=== PATIENT | female | born 1950 | race Caucasian/White ===

== ENCOUNTER 2019-08-28 12:53 | Day surgery (SDC) | payer MEDICARE ==
[2019-08-28] MEDS ORDERED: Depo-Medrol 40 MG/ML IM ONE (12:54)
[2019-08-28] MEDS ORDERED: Marcaine 0.5% SDV 10 ML IM ONE (12:54)
[2019-08-28] MEDS ORDERED: Xylocaine 1% Vial 30 ML PF IJ ONE (12:54)
--- NOTE | 2019-08-28 15:11 | XRAY ---
9 seconds fluoroscopy time in surgery for right shoulder intra-articular injection.
--- NOTE | 2019-08-28 15:21 | XRAY ---
Indication: Right shoulder injection. Intraoperative fluoroscopy was provided for 9 seconds. Single digital spot image submitted for interpretation demonstrates needle tip projecting over the right glenohumeral joint superiorly. Small amount of contrast injected for needle tip placement. Correlate with intraoperative findings/report.
== END 2019-08-28 14:32 | disposition home or self-care (01) ==
LOC: SDC-PAIN 12:53
PROVIDERS: ATTEND Psychiatry & Neurology Pain Medicine
DX: M19.011 Primary osteoarthritis, right shoulder (principal); F41.8 Other specified anxiety disorders; Z79.899 Other long term (current) drug therapy
CPT/HCPCS: 20610; 73030; 77002; J1030; J2001; Q9966

== ENCOUNTER 2019-12-25 14:36 | Day surgery (SDC) | payer MEDICARE ==
[2019-12-25] MEDS ORDERED: Marcaine 0.5% SDV 10 ML IJ ONE (14:37)
[2019-12-25] MEDS ORDERED: Depo-Medrol 40 MG/ML IM ONE (14:37)
[2019-12-25] MEDS ORDERED: Xylocaine 1% Vial 30 ML PF IJ ONE (14:37)
--- NOTE | 2019-12-25 16:15 | XRAY ---
29 seconds fluoroscopy time in surgery for right intra-articular ad subacromial injections.
--- NOTE | 2019-12-25 16:25 | XRAY ---
Indication: Right shoulder intra-articular injection. Intraoperative fluoroscopy was provided for 29 seconds. 2 digital spot images submitted for interpretation demonstrates needle tip projecting over the right glenohumeral joint superiorly. Small amount of contrast injected for needle tip placement. Correlate with intraoperative findings/report.
== END 2019-12-25 15:53 | disposition home or self-care (01) ==
LOC: SDC-PAIN 14:36
PROVIDERS: ATTEND Psychiatry & Neurology Pain Medicine
DX: M19.011 Primary osteoarthritis, right shoulder (principal); M75.52 Bursitis of left shoulder; M75.51 Bursitis of right shoulder; F41.8 Other specified anxiety disorders; Z79.899 Other long term (current) drug therapy
CPT/HCPCS: 20610; 73030; 77002; J1030; J2001; Q9966

== ENCOUNTER 2020-12-23 14:40 | Day surgery (SDC) | payer MEDICARE ==
[2020-12-23] MEDS ORDERED: Depo-Medrol 40 MG/ML IM ONE (14:41)
[2020-12-23] MEDS ORDERED: Sodium Chloride 0.9(Preservative Free) 10 ML IJ ONE (14:41)
[2020-12-23] MEDS ORDERED: DIPRIVAN 200 MG/20 ML IV ONE (16:56)
[2020-12-23] MEDS ORDERED: Lactated Ringers 1,000 ML IV ONE (17:34)
--- NOTE | 2020-12-24 08:02 | XRAY ---
21 seconds fluoroscopy time in surgery for transforaminal DEEP.
== END 2020-12-23 17:21 | disposition home or self-care (01) ==
LOC: SDC-PAIN 14:40
PROVIDERS: ATTEND Psychiatry & Neurology Pain Medicine
DX: M54.16 Radiculopathy, lumbar region (principal); Z79.899 Other long term (current) drug therapy
CPT/HCPCS: 64483; 64484; 72020; 77003; J1030; J2704; Q9966

== ENCOUNTER 2021-05-26 12:12 | Day surgery (SDC) | payer MEDICARE ==
[2021-05-26] MEDS ORDERED: Sodium Chloride 0.9% 10 ML FLUSH Syringe IJ ONE (12:13)
[2021-05-26] MEDS ORDERED: Depo-Medrol 40 MG/ML IM ONE (12:13)
[2021-05-26] MEDS ORDERED: Lactated Ringers 1,000 ML IV ONE (13:46)
[2021-05-26] MEDS ORDERED: DIPRIVAN 200 MG/20 ML IV ONE (14:30)
--- NOTE | 2021-05-26 16:40 | XRAY ---
Indication: Left L3-L5 transforaminal DEEP. Intraoperative fluoroscopy provided for 27 seconds. 5 digital spot image submitted for interpretation demonstrates posterior needle tips projecting over the expected left L3 and L4 nerve roots. Small amount of contrast injected for needle tip placement. Correlate with intraoperative findings/report.
== END 2021-05-26 14:56 | disposition home or self-care (01) ==
LOC: SDC-PAIN 12:12
PROVIDERS: ATTEND Psychiatry & Neurology Pain Medicine
DX: M54.16 Radiculopathy, lumbar region (principal); Z79.899 Other long term (current) drug therapy
CPT/HCPCS: 64483; 64484; 72100; 77003; J1030; J2704; Q9966

== ENCOUNTER 2023-01-18 12:17 | Day surgery (SDC) | payer MEDICARE ==
[2023-01-18] MEDS ORDERED: Depo-Medrol 40 MG/ML IM ONE (12:18)
[2023-01-18] MEDS ORDERED: Sodium Chloride 0.9(Preservative Free) 10 ML IJ ONE (12:18)
[2023-01-18] MEDS ORDERED: DIPRIVAN 200 MG/20 ML IV ONE (14:29)
[2023-01-18] MEDS ORDERED: Lactated Ringers 1,000 ML IV ONE (16:00)
--- NOTE | 2023-01-18 16:33 | XRAY ---
18 seconds of fluoroscopy was used in surgery for a left L3-L5 transforaminal DEEP.
--- NOTE | 2023-01-18 16:37 | XRAY ---
Indication: Left L3-L5 transforaminal DEEP. Intraoperative fluoroscopy provided for 18 seconds. 4 digital spot image submitted for interpretation demonstrates posterior needle tips projecting over the expected left L3 and L4 nerve roots. Small amount of contrast injected for needle tip placement. Correlate with intraoperative findings/report.
== END 2023-01-18 15:00 | disposition home or self-care (01) ==
LOC: SDC-PAIN 12:17
PROVIDERS: ATTEND Psychiatry & Neurology Pain Medicine
DX: M54.16 Radiculopathy, lumbar region (principal); Z79.899 Other long term (current) drug therapy
CPT/HCPCS: 64483; 64484; 72100; 77003; J1030; J2704; Q9966

== ENCOUNTER 2023-02-18 12:30 | Emergency (ER) | payer MEDICARE ==
[2023-02-18 12:51] VITALS: TEMP 98; O2SAT 96
[2023-02-18] MEDS ORDERED: Rocephin 1000 MG INJ IM ONE (12:58)
--- NOTE | 2023-02-18 12:58 | ERPHSYRPT ---
- History of Present Illness Time Seen by Provider: 02/18/23 12:53 Source: patient Patient Subjective Stated Complaint: C/O RLE pain. States it has been hurting for a few days but is worse today. Triage Nursing Assessment: Patient ambulated back to ER with a steady gait. She is alert and oriented. No SOB. RLE ([place] area) is red and warm to touch. Two small open areas/abrasions noted in area of redness. Patient indicates she has been working out in her yard and is unsure how the openings in her skin occurred or when they happened. Edema noted to both feet/ankles; right worse than left. Weak but equal pedal pulses present. Physician History: c/o Two small open areas/abrasions noted in area of redness. Patient indicates she has been working out in her yard and is unsure how the openings in her skin occurred or when they happened. Method of Injury: unknown Occurred: days ago Severity of Pain-Max: mild Severity of Pain-Current: mild Lower Extremities Pain: leg: right Modifying Factors: Improves With: nothing Associated Symptoms: none Allergies/Adverse Reactions: No Known Allergies Allergy (Verified 02/18/23 12:40) Home Medications: ALPRAZolam [Xanax 0.5 mg] 0.5 mg PO Q8HPRN PRN 02/06/16 [History] Bumetanide 1 mg [Bumex 1 mg] 1 mg PO DAILY 02/06/16 [History] Cholecalciferol (Vitamin D3) [Vitamin D3] 50,000 unit PO WEEKLY 02/06/16 [History] Diclofenac Sodium [Voltaren] 1 applic TP QID 02/06/16 [History] Fluticasone/Vilanterol [Breo Ellipta 100-25 Mcg INH] 1 each IH DAILY 02/06/16 [History] Gabapentin [Neurontin] 300 mg PO DAILY 02/06/16 [History] Hydrocodone/Acetaminophen [Keo 5-325 Tablet] 1 each PO DAILY 02/06/16 [History] Losartan Potassium 50 mg [Cozaar 50 MG] 50 mg PO DAILY 02/06/16 [History] Meloxicam 15 mg [Meloxicam 15 MG] 15 mg PO DAILY 02/06/16 [History] Oxymorphone HCl [Oxymorphone HCl ER] 10 mg PO BID 02/06/16 [History] Potassium Chloride 10 meq PO DAILY 02/06/16 [History] Ropinirole HCl [Requip] 2 mg PO HS 02/06/16 [History] Venlafaxine HCl [Effexor] 75 mg PO TID 02/06/16 [History] lisinopriL [Zestril] 2.5 mg PO DAILY 02/06/16 [History] Hx Tetanus, Diphtheria Vaccination/Date Given: Yes Hx Influenza Vaccination/Date Given: Yes Hx Pneumococcal Vaccination/Date Given: Yes Immunizations Up to Date: Yes Travel Risk - International Travel Have you traveled outside of the country in past 3 weeks: No - Coronavirus Screening Are you exhibiting any of the following symptoms?: No Close contact with a COVID-19 positive Pt in past 14-21 Days: No - Vaccine Status Have you recieved a Covid-19 vaccination: Yes Still Runner: Unknown - Vaccination Dates Dates if Unknown: ? - Review of Systems Constitutional: No Fever, No Chills Eyes: No Symptoms Ears, Nose, & Throat: No Symptoms Respiratory: No Cough, No Dyspnea Cardiac: No Chest Pain, No Edema, No Syncope Abdominal/Gastrointestinal: No Abdominal Pain, No Nausea, No Vomiting, No Diarrhea Genitourinary Symptoms: No Dysuria Musculoskeletal: No Back Pain, No Neck Pain Skin: No Rash Neurological: No Dizziness, No Focal Weakness, No Sensory Changes Psychological: No Symptoms Endocrine: No Symptoms All Other Systems: Reviewed and Negative - Past Medical History Pertinent Past Medical History: Yes Neurological History: Other ENT History: No Pertinent History Cardiac History: Hypertension Respiratory History: CHF, COPD, Sleep Apnea Endocrine Medical History: No Pertinent History Musculoskeletal History: Arthritis GI Medical History: No Pertinent History History: No Pertinent History Psycho-Social History: Anxiety Female Reproductive Disorders: No Pertinent History Other Medical History: Restless leg syndrome, carpal tunnel - Past Surgical History Past Surgical History: Yes Neuro Surgical History: No Pertinent History Cardiac: No Pertinent History Gastrointestinal: Cholecystectomy Genitourinary: No Pertinent History Musculoskeletal: Orthopedic Surgery Female Surgical History: Section, Hysterectomy Other Surgical History: lt knee replacement, carpal tunnel surgery, sinus surgery, three ear surgeries, Medical hx taken from transfer medical record - Social History Smoking Status: Never smoker Exposure to second hand smoke: No Drug Use: none - Nursing Vital Signs Nursing Vital Signs: Initial Vital Signs Temperature 98 F 02/18/23 12:31 Pulse Rate 72 02/18/23 12:31 Respiratory Rate 19 02/18/23 12:31 Blood Pressure 122/74 02/18/23 12:31 O2 Sat by Pulse Oximetry 96 02/18/23 12:31 Pain Scale Pain Intensity [RLE] 7 Pain Intensity 7 - Physical Exam General Appearance: alert Eyes, Ears, Nose, Throat Exam: moist mucous membranes Neck Exam: non-tender, supple Cardiovascular/Respiratory Exam: chest non-tender, normal breath sounds, regular rate/rhythm, no respiratory distress Gastrointestinal/Abdominal Exam: non-tender, guarding Back Exam: normal inspection, No vertebral tenderness Hips Exam: bilateral: non-tender Legs Exam: right leg: soft tissue tenderness, swelling Knees Exam: bilateral knee: non-tender Ankle Exam: bilateral ankle: non-tender Foot Exam: bilateral foot: non-tender Neuro/Tendon Exam: normal sensation, normal motor functions Mental Status Exam: alert, oriented x 3, cooperative Skin Exam: normal color, warm, dry SpO2 Interpretation: normal SpO2: 96 O2 Delivery: Room Air - Course Nursing assessment & vital signs reviewed: Yes - Progress Progress: unchanged, pain not gone completely Counseled pt/family regarding: diagnosis, need for follow-up Medical Desision Making - Diagnostic Testing Diagnostic test were ordered, analyzed, and reviewed by me: No - Risk of complications Minimal Risk: Minimal risk of morbidity - Departure Departure Disposition: Home Clinical Impression: Cellulitis of right leg without foot Condition: Stable Critical Care Time: No Referrals: MAGDIEL TOVAR MD [Primary Care Provider] - Follow Up with PCP/3 days Instructions: Cellulitis (Skin Infection), Adult (DC) Additional Instructions: Discharge/Care Plan PAOLA LIGHT was seen on 02/18/23 in the Emergency Room. The patient was counseled regarding Diagnosis,Lab results, Imaging studies, need for follow up and when to return to the Emergency Room. Prescriptions given: Discharge Note I have spoken with the patient and/or caregivers. I have explained the patient's condition, diagnosis and treatment plan based on the information available to me at this time. I have answered the patient's and/or caregiver's questions and ad dressed any concerns. The patient and/or caregivers have as good understanding of the patient's diagnosis, condition and treatment plan as can be expected at this point. The vital signs have been stable. The patient's condition is stable and appropriate for discharge from the emergency department. The patient will pursue further outpatient evaluation with the primary care physician or other designated or consulting physician as outlined in the discharge instructions. The patient and/or caregivers are agreeable to this plan of care and follow-up instructions have been explained in detail. The patient and/or caregivers have received these instruction. The patient/and or caregivers are aware that any significant change in condition or worsening of symptoms should prompt an immediate return to this or the closest emergency department or call 911. PAOLA LIGHT was seen on 02/18/23 n the Emergency Room. At that time you were treated for an emergent condition, during your visit Laboratory, Radiology and/or other procedures may have been ordered. It is very important that you follow-up with your Primary Care Physician MAGDIEL TOVAR within the next 24-48 hours to review your Emergency Room visit and the final results of testing that was ordered. Some test results such as Urine Cultures, Blood Cultures, and other cultures if ordered will not be finalized for 24-48 hours. If you do not have a Primary Care Provider please call the medical records department at [phone] ext [phone] to obtain a copy of your results or you may sign into our patient portal to obtain these results by visiting us @ [email or web address] and completing the following steps: 1. Click on the Patient Portal link 2. Click the Patient Self Enrollment Link to complete the enrollment form and entering your 3. Once the enrollment form is completed you will receive an email with a tempo rary ID and password at the email address you provided. 4. Next choose a user name and password. Your user name must be at least 4 characters long and your password must be at least 4 characters long. 5. Choose a security question from the list and provide your answer to the question. If you already have signed into the Health Portal you may access your Health Care Information 02/01 by the following steps: 1. Login to our website @ [email or web address] 2. Enter your original user name and password. FAQS The [facility] Health Portal is an online tool that contains your Lab Results, Radiology Reports, Visit History, Discharge Instructions and Health Summary Lab and Radiology Results will not be available for 72 hours on the portal. The Portal is a secure site, passwords are encryted and URLs are re-written so they cannot be copied and pasted. You and authorized family members are the only ones who can access your Portal. Also there is a timeout feature that protects your information if you leave the Portal page open. If you have technical difficulty please use the Contact Us link on the page this will allow you to submit any questions you have regarding the Portal or you may contact the Medical Record Department at [phone] ext [phone]. Prescriptions: Cephalexin Mh 500 mg [Keflex 500 mg] 500 mg PO Q6H #40 cap
[2023-02-18] MEDS ORDERED: Rocephin 1000 MG INJ ONE (13:06)
[2023-02-18 13:16] VITALS: BP 109/85; PULSE 76; RESP 18
== END 2023-02-18 13:23 | disposition home or self-care (01) ==
LOC: ED 12:30
DX: L03.115 Cellulitis of right lower limb (principal); I11.0 Hypertensive heart disease with heart failure; I50.9 Heart failure, unspecified; Z79.899 Other long term (current) drug therapy
CPT/HCPCS: 96372; 99282; J0696

== ENCOUNTER 2023-05-25 12:05 | Day surgery (SDC) | payer MEDICARE ==
[2023-05-25] MEDS ORDERED: XYLOCAINE-MPF 1% 5ML SDV IJ ONE (12:06)
[2023-05-25] MEDS ORDERED: Decadron 4 MG INJ IV ONE (12:06)
[2023-05-25] MEDS ORDERED: DIPRIVAN 200 MG/20 ML IV ONE (13:51)
--- NOTE | 2023-05-25 15:04 | XRAY ---
Indication: Left piriformis injection. Intraoperative fluoroscopy provided for 15 seconds. 3 digital spot image submitted for interpretation demonstrates posterior needle tip projecting over the left piriformis. Small amount of contrast injected for needle tip placement. Correlate with intraoperative findings/report.
--- NOTE | 2023-05-25 15:16 | XRAY ---
15 seconds of fluoroscopy was used in surgery for a left piriformis injection.
[2023-05-25] MEDS ORDERED: Lactated Ringers 1,000 ML IV ONE (16:28)
== END 2023-05-25 14:20 | disposition home or self-care (01) ==
LOC: SDC-PAIN 12:05
PROVIDERS: ATTEND Psychiatry & Neurology Pain Medicine
DX: M79.18 Myalgia, other site (principal)
CPT/HCPCS: 20552; 72170; 77002; J1100; J2704; Q9966

== ENCOUNTER 2023-07-20 12:58 | Day surgery (SDC) | payer MEDICARE ==
[2023-07-20] MEDS ORDERED: Depo-Medrol 40 MG/ML IM ONE (12:59)
[2023-07-20] MEDS ORDERED: BUPIVACAINE 0.5% VIAL IJ ONE (12:59)
[2023-07-20] MEDS ORDERED: DIPRIVAN 200 MG/20 ML IV ONE (13:56)
[2023-07-20] MEDS ORDERED: Lactated Ringers 1,000 ML IV ONE (14:36)
--- NOTE | 2023-07-20 14:52 | XRAY ---
Indication: Bilateral SI joint injection. Intraoperative fluoroscopy provided for 13 seconds. 4 digital spot image submitted for interpretation demonstrates posterior needle tip projecting over the left and right SI joint. Correlate with intraoperative findings/report.
--- NOTE | 2023-07-20 15:10 | XRAY ---
13 seconds of fluoroscopy was used in surgery for a bilateral sacroiliac joint injection.
== END 2023-07-20 14:28 | disposition home or self-care (01) ==
LOC: SDC-PAIN 12:58
PROVIDERS: ATTEND Psychiatry & Neurology Pain Medicine
DX: M46.1 Sacroiliitis, not elsewhere classified (principal)
CPT/HCPCS: 01992; 27096; 72202; 77002; G0260; J1030; J2704

== ENCOUNTER 2023-09-06 13:51 | Day surgery (SDC) | payer MEDICARE ==
[2023-09-06] MEDS ORDERED: LIDOCAINE HCL 2% 100 MG/5 ML IJ ONE (13:52)
[2023-09-06] MEDS ORDERED: DIPRIVAN 200 MG/20 ML IV ONE (15:10)
[2023-09-06] MEDS ORDERED: Lactated Ringers 1,000 ML IV ONE (15:53)
--- NOTE | 2023-09-06 16:50 | XRAY ---
Indication: Bilateral L3-L5 MBB. Intraoperative fluoroscopy provided for 15 seconds. Single digital spot image submitted for interpretation demonstrates posterior needle tips projecting over the expected left and right L3-L5 nerve roots. Correlate with intraoperative findings/report.
--- NOTE | 2023-09-06 18:26 | XRAY ---
15 seconds of fluoroscopy was used in surgery for a bilateral L3-L5 MBB.
== END 2023-09-06 15:35 | disposition home or self-care (01) ==
LOC: SDC-PAIN 13:51
PROVIDERS: ATTEND Psychiatry & Neurology Pain Medicine
DX: M47.816 Spondylosis without myelopathy or radiculopathy, lumbar region (principal)
CPT/HCPCS: 64493; 64494; 72020; 77002; J2704

== ENCOUNTER 2023-09-27 12:07 | Day surgery (SDC) | payer MEDICARE ==
[2023-09-27] MEDS ORDERED: BUPIVACAINE 0.5% VIAL IJ ONE (12:08)
[2023-09-27] MEDS ORDERED: DIPRIVAN 200 MG/20 ML IV ONE (13:46)
[2023-09-27] MEDS ORDERED: Lactated Ringers 1,000 ML IV ONE (14:05)
--- NOTE | 2023-09-27 15:11 | XRAY ---
Indication: Bilateral L3-L5 MBB. Intraoperative fluoroscopy provided for 10 seconds. Single digital spot image submitted for interpretation demonstrates posterior needle tips projecting over the expected left and right L3-L5 nerve roots. Correlate with intraoperative findings/report.
--- NOTE | 2023-09-27 15:16 | XRAY ---
10 seconds of fluoroscopy was used in surgery for a bilateral L3-L5 MBB.
== END 2023-09-27 14:16 | disposition home or self-care (01) ==
LOC: SDC-PAIN 12:07
PROVIDERS: ATTEND Psychiatry & Neurology Pain Medicine
DX: M47.816 Spondylosis without myelopathy or radiculopathy, lumbar region (principal)
CPT/HCPCS: 64493; 64494; 72020; 77002; J2704

== ENCOUNTER 2024-01-17 12:00 | Day surgery (SDC) | payer MEDICARE ==
[2024-01-17] MEDS ORDERED: BUPIVACAINE 0.5% VIAL IJ ONE (12:01)
[2024-01-17] MEDS ORDERED: Depo-Medrol 40 MG/ML IM ONE (12:01)
[2024-01-17] MEDS ORDERED: LIDOCAINE HCL 1% 50 MG/5 ML VL PF IJ ONE (12:01)
[2024-01-17] MEDS ORDERED: DIPRIVAN 200 MG/20 ML IV ONE (13:53)
[2024-01-17] MEDS ORDERED: Lactated Ringers 1,000 ML IV ONE (14:34)
--- NOTE | 2024-01-17 15:07 | XRAY ---
Indication: Right L3-L5 RFA. Intraoperative fluoroscopy provided for 24 seconds. 4 digital spot image submitted for interpretation demonstrates posterior needle tips projecting over the expected right L3-L5 nerve roots. Correlate with intraoperative findings/report.
--- NOTE | 2024-01-17 15:09 | XRAY ---
24 seconds of fluoroscopy was used in surgery for a right L3-L5 RFA.
== END 2024-01-17 14:21 ==
LOC: SDC-PAIN 12:00
PROVIDERS: ATTEND Psychiatry & Neurology Pain Medicine
DX: M47.816 Spondylosis without myelopathy or radiculopathy, lumbar region (principal)
CPT/HCPCS: 64635; 64636; 72100; 77002; 99100; J2001; J2704

== ENCOUNTER 2024-01-18 12:04 | Day surgery (SDC) | payer MEDICARE ==
[2024-01-18] MEDS ORDERED: BUPIVACAINE 0.5% VIAL IJ ONE (12:05)
[2024-01-18] MEDS ORDERED: LIDOCAINE HCL 1% 50 MG/5 ML VL PF IJ ONE (12:05)
[2024-01-18] MEDS ORDERED: Depo-Medrol 40 MG/ML IM ONE (12:05)
[2024-01-18] MEDS ORDERED: Lactated Ringers 1,000 ML IV ONE (13:25)
[2024-01-18] MEDS ORDERED: DIPRIVAN 200 MG/20 ML IV ONE (13:32)
--- NOTE | 2024-01-18 15:04 | XRAY ---
Indication: Left L3-L5 RFA. Intraoperative fluoroscopy provided for 21 seconds. 4 digital spot image submitted for interpretation demonstrates posterior needle tips projecting over the expected left L3-L5 nerve roots. Correlate with intraoperative findings/report.
--- NOTE | 2024-01-18 15:34 | XRAY ---
21 seconds of fluoroscopy was used in surgery for a left L3-L5 RFA.
== END 2024-01-18 14:04 | disposition home or self-care (01) ==
LOC: SDC-PAIN 12:04
PROVIDERS: ATTEND Psychiatry & Neurology Pain Medicine
DX: M47.816 Spondylosis without myelopathy or radiculopathy, lumbar region (principal)
CPT/HCPCS: 64635; 64636; 72100; 77002; 99100; J2001; J2704

== ENCOUNTER 2024-07-04 08:48 | Day surgery (SDC) | payer MEDICARE ==
[~2024-07-04 08:48] MED LIST: DIPRIVAN 200 MG/20 ML IV ONE
[2024-07-04] MEDS ORDERED: Depo-Medrol 40 MG/ML IM ONE (08:49)
[2024-07-04] MEDS ORDERED: BUPIVACAINE 0.5% VIAL IJ ONE (08:49)
[2024-07-04] MEDS ORDERED: propofoL IV ONE (10:21)
--- NOTE | 2024-07-04 12:11 | XRAY ---
Indication: Left greater trochanter bursa injection. Intraoperative fluoroscopy provided for 6 seconds. Single digital spot image submitted for interpretation demonstrates needle tip lateral to left greater trochanter. Small amount of contrast injected for needle tip placement. Correlate with intraoperative findings/report.
--- NOTE | 2024-07-04 12:17 | XRAY ---
6 seconds of fluoroscopy was used in surgery for a left greater trochanteric bursa injection.
== END 2024-07-04 10:42 | disposition home or self-care (01) ==
LOC: SDC-PAIN 08:48
PROVIDERS: ATTEND Psychiatry & Neurology Pain Medicine
DX: M16.12 Unilateral primary osteoarthritis, left hip (principal); M70.62 Trochanteric bursitis, left hip
CPT/HCPCS: 20610; 73501; 77002; J2704; Q9966

== ENCOUNTER 2025-03-10 06:00 | Day surgery (SDC) | payer MEDICARE ==
[2025-03-10] MEDS ORDERED: TRANEXAMIC 1,000 MG/100ML-NACL 1,000 MG/100 ML PIGGYBACK IV ONE ×2 (06:03→09:35)
[2025-03-10] MEDS ORDERED: CEFAZOLIN SODIUM ONE (06:04)
[2025-03-10] MEDS: celeBREX 100 MG PO ONE (06:30)
[2025-03-10] MEDS: TYLENOL EXTRA STRENGTH 500 MG PO ONE (06:30)
[2025-03-10] MEDS: Decadron 4 MG PO ONE (06:30)
[2025-03-10] MEDS: Lactated Ringers 1,000 ML IV SCH (06:31)
[2025-03-10] MEDS: TRANEXAMIC 1,000 MG/100ML-NACL 1,000 MG/100 ML PIGGYBACK IV ONE (06:31)
[2025-03-10] MEDS: NEURONTIN PO ONE (06:31)
[2025-03-10] MEDS ORDERED: Zofran 4 MG/2 ML VIAL ONE (07:45)
[2025-03-10] MEDS ORDERED: SUBLIMAZE 100 MCG/2 ML ONE (07:45)
[2025-03-10] MEDS ORDERED: Xylocaine-Mpf 2% 5 Ml Vial ONE (07:45)
[2025-03-10] MEDS ORDERED: Versed 2 MG/2 ML Injection ONE (07:45)
[2025-03-10] MEDS ORDERED: propofoL IV ONE (07:45)
[2025-03-10] MEDS ORDERED: Astramorph-Pf 5 MG/10 ML ONE (07:54)
[2025-03-10] MEDS ORDERED: Ephedrine Sulfate 50 MG/ML ONE (08:18)
--- NOTE | 2025-03-10 10:50 | XRAY ---
Indication: Postop exam. Comparison: March 02, 2022 Portable AP/cross-table lateral left knee demonstrates new total knee arthroplasty with postoperative soft tissue swelling, emphysema, effusion, and anterior cutaneous asael. Again incidental tiny fabella. No other abnormalities.
[2025-03-10] MEDS ORDERED: Docusate Sodium 100 MG PO PRN (11:23)
[2025-03-10] MEDS ORDERED: Miralax Powder 17GM PACKET PO PRN (11:24)
[2025-03-10] MEDS ORDERED: Zofran 4 MG/2 ML VIAL IV PRN (11:24)
[2025-03-10] MEDS ORDERED: MORPHINE SULFATE 2 MG INJ IV PRN (11:26)
[2025-03-10] MEDS ORDERED: MEDICATION INTERVENTION MC SCH (11:45)
[2025-03-10] MEDS: Glucophage 500 MG PO SCH (12:11)
[2025-03-10] MEDS: Singulair 10 MG PO SCH (12:11)
[2025-03-10] MEDS: Lyrica 50MG PO SCH (12:12)
[2025-03-10] MEDS: Klor Con PO SCH (12:12)
[2025-03-10] MEDS: Zestril 5 MG PO SCH (12:12)
[2025-03-10] MEDS: Lasix 40 MG PO SCH (12:13)
[2025-03-10] MEDS: JARDIANCE PO SCH (12:17)
[2025-03-10] MEDS: VITAMIN D2 PO SCH (12:19)
[2025-03-10] MEDS: Zocor 10MG PO SCH (21:33)
[2025-03-10] MEDS: Zetia 10 MG PO SCH (21:33)
[2025-03-10] MEDS ORDERED: [UNRECOGNIZED DRUG - OTHER] TP SCH (22:00)
[2025-03-10] MEDS ORDERED: CLOBETASOL PROPIONATE TP SCH (22:00)
[2025-03-10] MEDS: VENTOLIN COMMON CANISTER IH SCH (23:59)
[2025-03-11] MEDS: NORCO 10-325 MG PO PRN (02:58)
[2025-03-11 07:24] VITALS: PULSE 74; RESP 16; TEMP 98.1; O2SAT 93
--- NOTE | 2025-03-11 07:45 | PCM.NOTE ---
Date and Time: 03/11/25 07 Subjective Assessment: Doing well, comfortable in bed. Pain well-controlled. Has ambulated with PT. Objective Exam Objective Exam: afebrile Left knee dressing C/D/I. NVI Objective Data Vital Signs: Vital Signs - 24 hr Temp Pulse Resp BP Pulse Ox 03/11/25 07:23 98.1 F 74 16 113/60 93 L 03/11/25 06:41 97 03/11/25 04:05 96.4 F 76 18 93/59 92 L 03/10/25 23:43 97.6 F 76 15 103/59 95 03/10/25 23:11 94 L 03/10/25 20:21 92 L 03/10/25 19:50 97.1 F 97 H 16 97/54 92 L 03/10/25 17:00 98 F 87 17 115/57 93 L 03/10/25 13:42 83 17 107/56 93 L 03/10/25 13:21 92 L 03/10/25 12:40 91 H 17 113/57 92 L 03/10/25 12:10 90 17 114/55 92 L 03/10/25 11:40 85 17 97/56 91 L 03/10/25 11:25 86 17 107/56 91 L 03/10/25 11:17 98 F 87 18 115/58 92 L 03/10/25 10:55 98 F 88 17 101/50 92 L Pain Assessment - Last Documented Pain Intensity [Left] 9 Pain Intensity 5 Pain Scale Used [facility] Intake and Output: Intake & Output 03/09/25 03/10/25 03/11/25 03/12/25 06:59 06:59 06:59 06:59 Intake Total 1997 Balance 1997 Weight 95.9 kg 98 kg Lab Results: Lab Results-Last 24 Hours 03/10/25 Range/Units 21:40 POC Glucometer 186 H (74 to 106) mg/dL Radiology Exams: Radiology Procedures Category Date Time Status KNEE (1 OR 2 VIEW) Routine Exams 03/10/25 10:20 Completed Medications: Medications Generic Name Dose Route Start Last Admin Trade Name Freq PRN Reason Stop Dose Admin Hydrocodone Bitart/Acetaminophen 0 tablet 03/10/25 11:25 03/11/25 02:58 Hydrocodone/Acetamin 10-325 Mg Tablet PO 03/15/25 11:24 1 tablet Q6H PRN PRN Administration PAIN Aspirin 81 mg 03/11/25 10:00 Aspirin 81 Mg Tablet.Ec PO 04/10/25 09:59 BID JESUS Docusate Sodium 100 mg 03/10/25 11:23 Docusate Sodium 100 Mg Capsule PO 04/09/25 11:22 BID PRN PRN CONSTIPATION Ezetimibe 10 mg 03/10/25 22:00 03/10/25 21:33 Ezetimibe 10 Mg Tab PO 04/09/25 21:59 10 mg HS JESUS Administration Empagliflozin 5 mg 03/10/25 12:00 03/10/25 12:17 Empagliflozin 10 Mg Tablet PO 04/09/25 11:59 5 mg DAILY JESUS Administration Ergocalciferol 50,000 unit 03/10/25 12:00 03/10/25 12:19 Ergocalciferol (Vitamin D2) 50,000 Unit Capsule PO 04/09/25 11:59 50,000 unit Q7D JESUS Administration Furosemide 40 mg 03/10/25 12:00 03/10/25 12:13 Furosemide 40 Mg Tablet PO 04/09/25 11:59 Not Given DAILY JESUS Sodium Chloride 1,000 mls @ 75 mls/hr 03/10/25 11:30 03/11/25 05:22 Sodium Chloride 0.9% 1000 Ml IV 04/09/25 11:29 Not Given .[id number] JESUS Lisinopril 2.5 mg 03/10/25 12:00 03/10/25 12:12 Lisinopril 5 Mg Tablet PO 04/09/25 11:59 2.5 mg DAILY JESUS Administration Metformin HCl 1,000 mg 03/10/25 12:00 03/10/25 12:11 Metformin Hcl 500 Mg Tablet PO 04/09/25 11:59 1,000 mg DAILY JESUS Administration Miscellaneous Information 1 each 03/10/25 11:45 Medication Intervention 1 Each Each 04/09/25 11:44 .RN TO CHECK JESUS Montelukast Sodium 10 mg 03/10/25 12:00 03/10/25 12:11 Montelukast Sodium 10 Mg Tablet PO 04/09/25 11:59 10 mg DAILY JESUS Administration Morphine Sulfate 2 mg 03/10/25 11:26 Morphine Sulfate 2 Mg/Ml Inj IV 03/15/25 11:25 Q2H PRN PRN POST OP PAIN 8-10 Ondansetron HCl 4 mg 03/10/25 11:24 Ondansetron Hcl 4 Mg/2 Ml Vial IV 04/09/25 11:23 Q6H PRN PRN NAUSEA/VOMITING Polyethylene Glycol 17 gm 03/10/25 11:24 Polyethylene Glycol 3350 17 Gm Packet PO 04/09/25 11:23 DAILY PRN PRN CONSTIPATION Potassium Chloride 10 meq 03/10/25 12:00 03/10/25 12:12 Potassium Chloride Tab 10 Meq Tab PO 04/09/25 11:59 10 meq DAILY JESUS Administration Pregabalin 50 mg 03/10/25 12:00 03/10/25 21:33 Pregabalin 50 Mg Capsule PO 04/09/25 11:59 50 mg BID JESUS Administration Simvastatin 10 mg 03/10/25 22:00 03/10/25 21:33 Simvastatin 10 Mg Tablet PO 04/09/25 21:59 10 mg HS JESUS Administration Discontinued Medications Generic Name Dose Route Start Last Admin Trade Name Freq PRN Reason Stop Dose Admin Acetaminophen 1,000 mg 03/10/25 05:58 03/10/25 06:30 Acetaminophen 500 Mg Tablet PO 03/10/25 05:59 1,000 mg 2HRPRIOR ONE Administration Albuterol Sulfate 2 puff 03/10/25 13:00 03/11/25 00:00 Albuterol Common Canister Inhaler 04/09/25 12:59 Not Given Q6HRT JESUS Cefazolin Sodium Confirm 03/10/25 06:04 Cefazolin Sodium 2 Gm Vial Administered 03/10/25 06:05 Dose 2 gm .ROUTE .STK-MED ONE Celecoxib 200 mg 03/10/25 05:58 03/10/25 06:30 Celecoxib 100 Mg Capsule PO 03/10/25 05:59 200 mg 2HRPRIOR ONE Administration Dexamethasone 8 mg 03/10/25 05:58 03/10/25 06:30 Dexamethasone 4 Mg Tablet PO 03/10/25 05:59 8 mg 2HRPRIOR ONE Administration Ephedrine Sulfate Confirm 03/10/25 08:18 Ephedrine Sulfate 50 Mg/Ml Administered 03/10/25 08:19 Dose 50 mg .ROUTE .STK-MED ONE Fentanyl Citrate Confirm 03/10/25 07:45 Fentanyl Citrate 100 Mcg/2 Ml* Vial Administered 03/10/25 07:46 Dose 100 mcg .ROUTE .STK-MED ONE Gabapentin 600 mg 03/10/25 05:58 03/10/25 06:31 Gabapentin 300 Mg Capsule PO 03/10/25 05:59 600 mg 2HRPRIOR ONE Administration Lactated Ringer's 1,000 mls @ 50 mls/hr 03/10/25 06:00 03/10/25 06:31 Lactated Ringers IV 04/09/25 05:59 50 mls/hr .Q20H JESUS Administration TRANEXAMIC ACID IN NACL,ISO-OS Confirm 03/10/25 06:03 Tranexamic 1,000 Mg/100ml-Nacl Administered 03/10/25 06:04 Dose 1,000 mg in 100 mls @ ud IV .STK-MED ONE Cefazolin Sodium 2 gm/ Sodium 100 mls @ 200 mls/hr 03/10/25 06:04 03/10/25 06:31 Chloride IV 03/10/25 06:33 200 mls/hr ONCALLTOOR ONE Administration TRANEXAMIC ACID IN NACL,ISO-OS 1,000 mg in 100 mls @ 600 mls/hr 03/10/25 06:04 03/10/25 06:31 Tranexamic 1,000 Mg/100ml-Nacl IV 03/10/25 06:13 600 mls/hr ONCE ONE Administration Sodium Chloride Confirm 03/10/25 06:04 Sodium Chloride 0.9% Administered 03/10/25 06:05 Dose 100 mls @ ud .ROUTE .STK-MED ONE TRANEXAMIC ACID IN NACL,ISO-OS Confirm 03/10/25 09:35 Tranexamic 1,000 Mg/100ml-Nacl Administered 03/10/25 09:36 Dose 1,000 mg in 100 mls @ ud IV .STK-MED ONE Cefazolin Sodium 2 gm/ Sodium 100 mls @ 200 mls/hr 03/10/25 14:00 03/10/25 21:33 Chloride IV 03/10/25 22:29 200 mls/hr Q8HT JESUS Administration Lidocaine HCl Confirm 03/10/25 07:45 Lidocaine - Mpf 2% 5 Ml Vial Administered 03/10/25 07:46 Dose 5 ml .ROUTE .STK-MED ONE Midazolam HCl Confirm 03/10/25 07:45 Midazolam Hcl 2 Mg/2 Ml Vial Administered 03/10/25 07:46 Dose 2 mg .ROUTE .STK-MED ONE Morphine Sulfate Confirm 03/10/25 07:54 Morphine Sulfate 5 Mg/10 Ml Pf Ampul Administered 03/10/25 07:55 Dose 5 mg .ROUTE .STK-MED ONE Ondansetron HCl Confirm 03/10/25 07:45 Ondansetron Hcl 4 Mg/2 Ml Vial Administered 03/10/25 07:46 Dose 4 mg .ROUTE .STK-MED ONE Propofol Confirm 03/10/25 07:45 Propofol 200 Mg/20 Ml Vial Administered 03/10/25 07:46 Dose 200 mg IV .STK-MED ONE Assessment/Plan - Assessment/Plan Assessment & Plan: s/p left TKA DC home. Starting PT Monday. Continue ASA 81mg BID Change dressing 10 days post op Follow up in 10-12 days.
[2025-03-11] MEDS: ECOTRIN 81 MG PO SCH (09:24)
[2025-03-11] MEDS ORDERED: METFORMIN HCL PO SCH (10:00)
[2025-03-11] MEDS ORDERED: EMPAGLIFLOZIN PO SCH (10:00)
[2025-03-11] MEDS ORDERED: [UNRECOGNIZED DRUG - OTHER] PO SCH (10:00)
[2025-03-11 10:23] VITALS: BP 113/63
--- NOTE | 2025-03-11 10:48 | OP ---
SURGERY DATE/TIME: 03/10/2025 [id number] PREOPERATIVE DIAGNOSIS: Left knee degenerative joint disease. POSTOPERATIVE DIAGNOSIS: Left knee degenerative joint disease. PROCEDURE: Left total knee arthroplasty. SURGEON: Amadeo Freire MD PUMP OPERATOR BYPRODUCTS: ARIS Cummings ANESTHESIA: General. COMPLICATIONS: None. ESTIMATED BLOOD LOSS: 15 mL. INDICATIONS: The patient is a 74-year-old female who presented with a several-year history of worsening left knee pain. Her x-rays revealed advanced degenerative joint disease. We discussed options, and she wanted to proceed with left total knee arthroplasty. I explained the risks associated with the procedure including, but not limited to, infection, pain, bleeding, damage to surrounding structures, stiffness, limp, blood clot, instability, pneumonia, and need for further procedures. After explaining all risks, benefits, and alternative treatment options, she desired to proceed with surgery. DESCRIPTION OF PROCEDURE AND FINDINGS: The patient was taken to the operating room and placed in supine position. IV antibiotics were administered and general anesthesia was administered as well. A tourniquet was applied to the left upper thigh. The left lower extremity was then prepped and draped in the standard sterile fashion. An Esmarch was used to exsanguinate the limb and the tourniquet was inflated to 300 mmHg. A longitudinal incision was then made over the anterior aspect of the left knee. Dissection was carried down and a medial parapatellar arthrotomy was made, extending partway into the vastus medialis obliquus muscle. The infrapatellar fat pad was then excised and the knee was flexed. At this time, the [employer] custom guide which has been matched to her knee was placed into the femur. This was pinned into position. The distal femoral cut was made. The size 6 cutting block was then pinned into position, and the remaining femoral cuts were made. The cruciate ligaments were then sacrificed and the tibia was subluxed anteriorly. The menisci were excised. The custom tibial guide was then placed over the top of the tibia and did not seem to be a perfect fit. The extramedullary tibial guide was then placed into position according to appropriate alignment and slope. The stylus was then used to determine the desired depth of tibial cut. The tibial cutting block was then pinned into position, and the tibial cut was made. The extension gap was checked and it was noted to be adequate. At this time, a size D trial tibia was pinned into position. The tibia was then drilled and punched. A size 6 trial femur was inserted. A 10 mm trial polyethylene, CR, was inserted. There was noted to be excellent stability and range of motion, as well as excellent patellar tracking. The patella was then denervated and small osteophytes were removed. The tibial lug holes were then drilled. The trial components were then removed. The bony structures were thoroughly irrigated with a pulse lavage and dried as cement was mixed on the back table. The following components were cemented into position, the [employer] system: A size D tibial baseplate, a size 6 narrow cruciate-retaining femoral component. Excess cement was removed. At this time, a 10 mm medial constraint polyethylene insert was locked into position. The tibia was then placed through range of motion, and there was excellent stability and range of motion, as well as excellent patellar tracking. The wound was again thoroughly irrigated with a pulse lavage. The arthrotomy was approximated with #1 Vicryl sutures in a [id number] fashion. The subcutaneous tissue was closed with 2-0 Vicryl sutures and the skin was closed with asael. A sterile dressing was then applied and the tourniquet was released. The patient was then awakened from anesthesia and taken to the recovery room in stable condition.
== END 2025-03-11 10:45 | disposition home or self-care (01) ==
LOC: SDC 06:00 → MED SURG 10:55 → SDC 03-11 10:45
PROVIDERS: ATTEND Orthopaedic Surgery
DX: M17.12 Unilateral primary osteoarthritis, left knee (principal); E11.9 Type 2 diabetes mellitus without complications
CPT/HCPCS: 01402; 27447; 64447; 64473; 73560; 76942; 82947; 93005; 94760; 97110; 97161; 97530; 99100; C1776